=== PATIENT | male | born 1990 | race Caucasian/White ===

== ENCOUNTER 2016-07-27 16:08 | Emergency (ER) | payer BC, OTHER ==
[2016-07-27 16:19] VITALS: BP 129/66
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
--- NOTE | 2016-07-27 16:48 | RAD ---
INDICATION: Left elbow injury one week ago COMPARISON: None TECHNIQUE: AP, lateral, and oblique views were obtained. FINDINGS: The bony structures, joint spaces, and soft tissues are normal for age. IMPRESSION: NEGATIVE EXAMINATION.
== END 2016-07-27 16:58 | disposition home or self-care (01) ==
LOC: UCCORT 16:08
DX: S56.912A Strain of unspecified muscles, fascia and tendons at forearm level, left arm, initial encounter (principal); X58.XXXA Exposure to other specified factors, initial encounter; Y93.89 Activity, other specified; Y92.159 Unspecified place in reform school as the place of occurrence of the external cause; Y99.0 Civilian activity done for income or pay
CPT/HCPCS: 99211; G0463

== ENCOUNTER 2016-12-09 11:41 | Emergency (ER) | payer OTHER ==
[2016-12-09 11:51] VITALS: BP 132/79
--- NOTE | 2016-12-09 12:26 | RAD ---
Indication: Right elbow injury. 4 views of the right elbow demonstrates no fracture. No joint effusion is noted. IMPRESSION: No fracture of the right elbow is noted.
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
== END 2016-12-09 12:44 | disposition home or self-care (01) ==
LOC: UCCORT 11:41
DX: S53.401A Unspecified sprain of right elbow, initial encounter (principal); X50.1XXA Overexertion from prolonged static or awkward postures, initial encounter; Y93.89 Activity, other specified; Y99.0 Civilian activity done for income or pay
CPT/HCPCS: 99212; G0463

== ENCOUNTER 2017-02-15 17:24 | Emergency (ER) | payer BC, OTHER ==
[2017-02-15 18:07] VITALS: BP 125/72
--- NOTE | 2017-02-15 18:13 | UC ---
Respiratory Complaint HPI - HPI Summary HPI Summary: 26 YEAR OLD FEMALE PRESENTS WITH COMPLAINS OF SORE THROAT, COUGH AND LOSS OF VOICE. - History of Current Complaint Chief Complaint: UCRespiratory Stated Complaint: COUGH/FATIGUE Time Seen by Provider: 02/15/17 18:12 Hx Obtained From: Patient Onset/Duration: Sudden Onset Severity Initially: Moderate Severity Currently: Moderate Pain Scale Used: 0-10 Numeric Character: Cough: Nonproductive Alleviating Factors: Upright Position Associated Signs And Symptoms: Positive: Negative - Allergies/Home Medications Allergies/Adverse Reactions: Allergies Allergy/AdvReac Type Severity Reaction Status Date / Time No Known Allergies Allergy Verified 02/15/17 18:01 PMH/Surg Hx/FS Hx/Imm Hx Previously Healthy: Yes - Surgical History Surgical History: Yes Surgery Procedure, Year, and Place: SHOULDER SURGERY x3. GASTROSCOPE x2 - Family History Known Family History: Positive: None, Hypertension, Diabetes, Other - DJD - Social History Alcohol Use: Weekly Alcohol Amount: WEEKENDS Substance Use Type: None Smoking Status (MU): Never Smoked Tobacco - Immunization History Most Recent Influenza Vaccination: no 2016 Review of Systems Constitutional: Negative Skin: Negative Eyes: Negative ENT: Sore Throat, Nasal Discharge, Sinus Congestion, Sinus Pain/Tenderness Respiratory: Negative Cardiovascular: Negative Gastrointestinal: Negative Genitourinary: Negative Motor: Negative Neurovascular: Negative Musculoskeletal: Negative Neurological: Negative Psychological: Negative All Other Systems Reviewed And Are Negative: Yes Physical Exam Triage Information Reviewed: Yes Vital Signs: Initial Vital Signs Temp 36.8 C 02/15/17 18:01 Pulse 71 02/15/17 18:01 Resp 16 02/15/17 18:01 BP 125/72 02/15/17 18:01 Pulse Ox 99 02/15/17 18:01 Vital Signs Reviewed: Yes Eye Exam: Normal ENT: Positive: Pharyngeal erythema, Nasal congestion, Nasal drainage Dental Exam: Normal Neck exam: Normal Neck: Positive: 1 Respiratory: Positive: Wheezing Cardiovascular Exam: Normal Abdominal Exam: Normal Musculoskeletal Exam: Normal Neurological Exam: Normal Psychological Exam: Normal Skin Exam: Normal UC Diagnostic Evaluation - Laboratory O2 Sat by Pulse Oximetry: 99 Respiratory Course/Dx - Differential Dx/Diagnosis Provider Diagnoses: LARYNGITIS. COUGH. SORE THROAT Discharge - Discharge Plan Condition: Stable Disposition: HOME Prescriptions: Albuterol HFA INHALER* [Ventolin HFA Inhaler*] 1 puff INH Q6H PRN #1 mdi PRN Reason: Wheezing Amoxicillin PO (*) [Amoxicillin 875 MG (*)] 875 mg PO BID #20 tab Fluticasone NASAL SPRAY 50MCG* [Flonase NASAL SPRAY 50MCG*] 2 spray BOTH NARES DAILY #1 btl Guaifenesin-Codeine [Cheratussin AC] 1 syp PO BEDTIME PRN #120 ml MDD 5 ml PRN Reason: Cough LoraTADine TAB(NF) [Claritin 10 MG TAB(NF)] 10 mg PO DAILY #30 tab Magic M W2 Charly/Maal/Nyst/Lido* 5 ml SWISH SPIT QID PRN #120 ml PRN Reason: Pain Patient Education Materials: Sinusitis (ED) Referrals: Benji Larkin DO [Primary Care Provider] -
== END 2017-02-15 19:14 | disposition home or self-care (01) ==
LOC: UCCORT 17:24
DX: J04.0 Acute laryngitis (principal); J02.9 Acute pharyngitis, unspecified; R05 Cough
CPT/HCPCS: 87502; 99212; G0463

== ENCOUNTER 2018-06-09 13:42 | Emergency (ER) | payer OTHER ==
[2018-06-09 14:33] VITALS: BP 128/62
[2018-06-09] MEDS ORDERED: Cyclobenzaprine TAB* 10 MG PO ONE (15:04)
--- NOTE | 2018-06-09 15:30 | UC ---
Back Pain HPI - HPI Summary HPI Summary: LOWER BACK PAIN RADIATING DOWN BOTH LEGS. SINCE 1130 TODAY. WAS PICKING UP 225 LB WEIGHT AT WORK AND FELT LOWER BACK PAIN. TOOK 800MG IBUPROFEN TODAY 1300 W/ NO PAIN RELIEF. PAINFUL TO SIT/STAND. HEATING PAD W/ NO RELIEF. - History of Current Complaint Chief Complaint: UCBackPain Stated Complaint: WC-BACK INJURY Time Seen by Provider: 06/09/18 14:59 Hx Obtained From: Patient Onset/Duration: Sudden Onset, Lasting Hours Timing: Constant Severity Initially: Severe Severity Currently: Severe Pain Intensity: 8 Character: Aching, Spasmodic Aggravating Factor(s): Movement, Walking Alleviating Factor(s): Position Associated Signs And Symptoms: Positive: Pain with Weight Bearing - Allergies/Home Medications Allergies/Adverse Reactions: Allergies Allergy/AdvReac Type Severity Reaction Status Date / Time No Known Allergies Allergy Verified 06/09/18 14:26 PMH/Surg Hx/FS Hx/Imm Hx Previously Healthy: Yes - Surgical History Surgical History: Yes Surgery Procedure, Year, and Place: SHOULDER SURGERY x3. GASTROSCOPE x2 - Family History Known Family History: Positive: Hypertension, Diabetes, Other - DJD - Social History Alcohol Use: Occasionally Alcohol Amount: WEEKENDS Substance Use Type: None Smoking Status (MU): Never Smoked Tobacco - Immunization History Most Recent Influenza Vaccination: no 2016 Review of Systems All Other Systems Reviewed And Are Negative: Yes Constitutional: Positive: Negative Skin: Positive: Negative Eyes: Positive: Negative ENT: Positive: Negative Respiratory: Positive: Negative Cardiovascular: Positive: Negative Gastrointestinal: Positive: Negative Genitourinary: Positive: Negative Motor: Positive: Negative Neurovascular: Positive: Negative Musculoskeletal: Positive: Arthralgia, Myalgia Neurological: Positive: Negative Psychological: Positive: Negative Is Patient Immunocompromised?: No Physical Exam Triage Information Reviewed: Yes Appearance: Well-Appearing, Well-Nourished, Pain Distress Vital Signs: Initial Vital Signs Temp 97.6 F 06/09/18 14:26 Pulse 68 06/09/18 14:26 Resp 16 06/09/18 14:26 BP 128/62 06/09/18 14:26 Pulse Ox 98 06/09/18 14:26 Vital Signs Reviewed: Yes Eye Exam: Normal ENT Exam: Normal Dental Exam: Normal Neck exam: Normal Respiratory Exam: Normal Respiratory: Positive: Chest non-tender, Lungs clear, Normal breath sounds Cardiovascular Exam: Normal Cardiovascular: Positive: RRR, No Murmur, Pulses Normal Abdominal Exam: Normal Abdomen Description: Positive: Nontender, No Organomegaly, Soft Bowel Sounds: Positive: Present Musculoskeletal: Positive: Strength Intact - able to walk, gait is steady, but painful, ROM Intact, No Edema Neurological Exam: Normal Psychological Exam: Normal Skin Exam: Normal Back Pain Course/Dx - Course Course Of Treatment: hx obtained, exam performed ,meds reviewed, xray obtained, flexeril given - Differential Dx/Diagnosis Differential Diagnosis/HQI/PQRI: Fracture, Herniated Disc, Strain, Sprain Provider Diagnosis: Low back strain Discharge - Sign-Out/Discharge Documenting (check all that apply): Patient Departure All imaging exams completed and their final reports reviewed: Yes - Discharge Plan Condition: Stable Disposition: HOME Prescriptions: Cyclobenzaprine TAB* [Flexeril 10 MG TAB*] 10 mg PO TID PRN #21 tab PRN Reason: Spasms Patient Education Materials: Acute Low Back Pain (ED), Lower Back Exercises (ED ) Forms: *Work Release Referrals: Jevon Elizondo MD [Medical Doctor] - Benji Larkin DO [Primary Care Provider] - Additional Instructions: 1. use the flexeril every 8 hours as needed 2. I would recommend 1000 mg of tylneol now and then in 6 hours start taking 1000 mg of tylenol with 400 mg if ibuprofen for pain management. 3. Stretch frequently, move around often, heat heat heat frequently. 4. if not improving over the next week, follow up with Dr Elizondo for work azul comp referral. - Billing Disposition and Condition Condition: STABLE Disposition: Home - Attestation Statements Provider Attestation: I was available for consult. This patient was seen by the PAUL. The patient was not presented to, seen by, or examined by me. -Sharif
== END 2018-06-09 16:20 | disposition home or self-care (01) ==
LOC: UCCORT 13:42
DX: S39.012A Strain of muscle, fascia and tendon of lower back, initial encounter (principal); X50.0XXA Overexertion from strenuous movement or load, initial encounter
CPT/HCPCS: 72110; 99212; A9270-GY; G0463

== ENCOUNTER 2019-03-22 13:19 | Emergency (ER) | payer OTHER ==
[2019-03-22 14:50] VITALS: BP 141/69
[2019-03-22] MEDS ORDERED: Ibuprofen TAB* 600 MG PO ONE (14:54)
[2019-03-22] MEDS ORDERED: Tetan/Diph/Pertus SYR(Tdap)* 0.5 ML SYR(BOOSTRIX) use SYR contains LATEX IM ONE (15:01)
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
== END 2019-03-22 16:19 | disposition home or self-care (01) ==
LOC: UCCORT 13:19
DX: R07.89 Other chest pain (principal); S63.502A Unspecified sprain of left wrist, initial encounter; S60.222A Contusion of left hand, initial encounter; S60.512A Abrasion of left hand, initial encounter; Z91.09 Other allergy status, other than to drugs and biological substances; Y04.0XXA Assault by unarmed brawl or fight, initial encounter; Y99.0 Civilian activity done for income or pay; Y92.9 Unspecified place or not applicable
CPT/HCPCS: 90715; 99211; A9270-GY; G0463